=== PATIENT | male | born 2000 | race Two or more races ===

== ENCOUNTER 2019-09-22 16:56 | Emergency (ER) | payer SELFPAY ==
[~2019-09-22] VITALS: Ht 185.4 cm; Wt 91.2 kg
--- NOTE | 2019-09-22 17:00 | NUR ---
BIB [facility] FROM MOM'S HOUSE,HYPERVENTILATING W/ CARPO-PEDAL SPASM UPON EMS ARRIVAL. PATIENT AOX4, BREATHING EVEN AND UNLABORED, NO SOB NOTED. ATTACHED TO THE PELLETIZER OPERATOR, KEPT COMFORTABLE.
[2019-09-22 17:51] LABS: BASOPHILS % (AUTO) 0.3 % (0.0-2.0); EOSINOPHILS % (AUTO) 0.2 % (0.0-6.0); HEMATOCRIT 51 % (39-51); HEMOGLOBIN 17.3 g/dL (13.5-17.5); LYMPHOCYTES # (AUTO) 1.8 /CMM (0.8-4.8); LYMPHOCYTES % (AUTO) 16.5 % (20.0-44.0); MEAN CORPUSCULAR HGB CONC 34 g/dl (31.0-36.0); MEAN CORPUSCULAR VOLUME 84 fL (80-96); MONOCYTES # (AUTO) 0.8 /CMM (0.1-1.30); MONOCYTES % (AUTO) 7.8 % (2.0-12.0); NEUTROPHILS # (AUTO) 8.2 /CMM (1.8-8.9); NEUTROPHILS % (AUTO) 75.2 % (43.0-81.0); PLATELET COUNT (AUTO) 246 /CMM (150-450); RED BLOOD CELL COUNT(AUTO) 6.09 MIL/uL (4.5-6.0); WHITE BLOOD COUNT (AUTO) 10.9 K/uL (4.3-11.0)
[2019-09-22 18:00] LABS: CARBON DIOXIDE 25 mmol/L (21-32); CHLORIDE 99 mmol/L (98-107); CREATININE 1.1 mg/dL (0.6-1.3); GLUCOSE 81 mg/dL (74-106); POTASSIUM 3.5 mmol/L (3.5-5.1); SODIUM SERUM 139 mmol/L (136-145); UREA NITROGEN, BLOOD 17 mg/dL (7-18)
[2019-09-22 19:05] VITALS: BP 123/92
== END 2019-09-22 19:06 | disposition home or self-care (01) ==
LOC: ER 17:01
DX: R07.89 Other chest pain (principal); F17.200 Nicotine dependence, unspecified, uncomplicated
CPT/HCPCS: 36415; 71045-TC; 80048-TC; 84484-TC; 85025-TC